=== PATIENT | male | born 1990 ===

== ENCOUNTER 2019-10-22 15:22 | Observation (INO) | payer BC, SELFPAY ==
[2019-10-22] VITALS (11 sets, daily range): BP systolic 116–152; BP diastolic 68–89; PULSE 74–97; RESP 15–24; TEMP 36.1–36.9; O2SAT 97–100
--- NOTE | 2019-10-22 15:30 | DI.CT_ITS ---
EXAM: CT ABDOMEN PELVIS W CLINICAL HISTORY: right lower abdominal pain TECHNIQUE: Imaging Protocol: Axial computed tomography images with coronal and sagittal reformatted images were created and reviewed CONTRAST MATERIAL: Intravenous: Omnipaque 350 Contrast volume:125 mL Oral: No COMPARISON: No exams were available for comparison FINDINGS: ABDOMEN: Lung Bases: Normal where visualized. Liver: Diffuse decreased attenuation of the liver consistent with fatty infiltration. No measurable mass. Portal, Superior Mesenteric, and Splenic Veins: Unremarkable. Gallbladder and Biliary Tract: No radiodense calculus or dilation. Pancreas: Normal density, no abnormal calcifications or inflammatory process. Spleen: Normal. Adrenals: No masses seen. Kidneys: Normal size, contour and axis. No radiodense stones or obstructive uropathy. No masses seen. Abdominal Aorta: Abdominal portion non-dilated. Bowel: No obstruction or bowel wall thickening. The appendix is distended measuring 1.8 cm in diamete r. There is thickening of the appendiceal wall with periappendiceal inflammatory changes. There is a n appendicoliths seen in the mid appendix. No focal fluid collection is seen to suggest an abscess. Peritoneal Cavity: No ascites, collection or mesenteric inflammatory response. Lymph Nodes: Mildly enlarged lymph nodes are seen in the right lower quadrant which are likely reacti ve. Bones: Unremarkable. Soft Tissues: There is a small fat containing umbilical hernia. PELVIS: Bladder: Symmetric distention, no gross wall thickening. Reproductive Organs: Unremarkable as visualized. Lymph Nodes: Mildly enlarged lymph nodes are seen in the right lower quadrant which are likely reacti ve. Bones: Within normal limits. IMPRESSION: Findings consistent with an acute appendicitis with appendicolith. No abscess or free air is identif ied. Incidental Findings Critical Findings RADIATION DOSE DELIVERED: DATA REPOSITORY: All CT scans at this facility are submitted to the National Radiology Data Registry (NRDR) Dose Index Registry (DIR) with the [employer] ([employer]). RADIATION OPTIMIZATION: All CT scans at this facility use at least one of these dose optimization te chniques: automated exposure control; mA and/or kV adjustment per patient size (includes targeted exa ms where dose is matched to clinical indication); or iterative reconstruction.
--- NOTE | 2019-10-22 15:41 | ED.GENADUL_ITS ---
Discharge Plan Disposition Patient Disposition: [facility] INPATIENT Condition: Stable Discharge Details Chief Complaint: Abd Prob Clinical Impression: Acute appendicitis Primary Care Provider: Margaret,Local ED Provider: Dash Patton Medical Decision Making 28 yo male who denies chronic medical problems, nonsmoker and denies alcohol or drug use and no prior abdominal surgeries comes in with chief complaint of abdominal pain. HE states he had a fever to 100.8 yesterday and has had increasing abdominal pain mostly in the RLQ. Denies vomit but has had nausea. Denies any known sick contacts and no travel. He has normal testicle exam, tenderness in right lower quadrant and ruq on exam without guarding or distention. Given his fever and pain will obtain lab work and CT to eval for appendicitis, cholecystitis and pancreatitis among other potential pathology ct shows appendicitis with possible microperforation. He feels better after toradol and zofran. Spoke with Dr. Gandhi from surgery who will admit the patient. levo/flagyl ordered as he has cefixime allergy Differential Diagnosis Differential Diagnosis: appendicitis, colitis, pancreatitis Imaging Data Radiologic Study: Attestation: I personally reviewed and interpreted this imaging study as follows: Imaging: CT Scan Radiologist's impression: IMPRESSION: 1. Appendicolith in the enlarged poorly defined appendix measuring 18 mm in maximum diameter with prominent infiltration of periappendiceal fat and fluid, consistent with acute appendicitis. Underlying perforation cannot be excluded. 2. Additional findings as described above. Lab Data Lab results reviewed: Yes I reviewed the patient's lab results. HPI General Mode of arrival: ambulatory . Date/Time Provider Initiated Documentation: 10/22/19 15:25 . Limitations to Documentation: no limitations . Information obtained by: patient . History of Present Illness 28 year old M presents to the emergency department with the chief complaint of abdominal pain, described as moderate, and it has been constant. No relieving factors improve symptom(s), No exacerbating factors reported . Patient did receive the following treatments prior to arrival, none Related Data Allergies Allergy/AdvReac Type Severity Reaction Status Date / Time cefixime [From Suprax] Allergy Unverified 10/22/19 15:38 General Stated Complaint: Abd Prob STORMY: 3 Review of Systems All systems reviewed & are unremarkable except as noted in HPI and below Constitutional Constitutional: Denies chills, Denies fever(s) and Denies weakness Cardiovascular Cardiovascular: Denies chest pain and Denies dyspnea Respiratory Respiratory: Denies cough and Denies dyspnea Gastrointestinal Gastrointestinal: Denies vomiting Musculoskeletal Musculoskeletal: Denies joint swelling Neurologic Neurologic: Denies weakness Psychiatric Psychiatric: Denies depression [facility] Social History Smoking/Tobacco Use Status: Never Alcohol Intake: never Drug use: Never Substance use type: does not use Do you feel safe at home: Yes Do you feel safe in your relationship?: Yes Exam Const General: no acute distress Orientation: alert HENMT Head: normal to inspection Ears: external ears normal General nose exam: external nose normal Mouth: moist mucous membranes Eyes General: appearance normal, both eyes and all related structures Neck Neck: normal visual inspection Resp Effort & Inspection: normal respiratory effort and able to speak in complete sentences Cardio Rate: regular rate GI Palpation: soft and tender Penis: normal penis Testes: normal, no testicular swelling and no testicular tenderness Neuro General: patient alert and patient oriented x3 Extrem General: normal to inspection Psych Mental Status: mental status grossly normal Course Vital Signs Vital signs: Vital Signs Temperature 36.1 C L 10/22/19 15:30 Pulse 97 H 10/22/19 15:30 Blood Pressure 152/89 H 10/22/19 15:30 Pulse Oximetry 98 10/22/19 15:30 Temperature 36.1 C L 10/22/19 15:30 Temperature Source Temporal Artery Scan 10/22/19 15:30 Pulse 97 H 10/22/19 15:30 Respiratory Effort Non-Labored 10/22/19 15:36 Blood Pressure 152/89 H 10/22/19 15:30 Blood Pressure Position Sitting 10/22/19 15:30 Pulse Oximetry 98 10/22/19 15:30 Oxygen Delivery Method Room Air 10/22/19 15:30 Oxygen Flow Rate 0 10/22/19 15:30 Pain Level 6 10/22/19 15:30
[2019-10-22] MEDS: Ketorolac 15 MG/ML VIAL IVP (16:03)
[2019-10-22] MEDS: Normal Saline 1,000 ML 1000 ML IV (16:03)
[2019-10-22] MEDS: Ondansetron 4 MG/2 ML VIAL IVP (16:04)
[2019-10-22] MEDS: Normal Saline Flush 10 ML SYR IVP (16:04)
[2019-10-22 16:06] LABS: Abs Immature Grans 0.03 k/cumm (0.0-0.09); Absolute Basophil Count 0.01 k/cumm (0.0-0.2); Absolute Monocyte Count 1.35 k/cumm (0.11-0.7); Basophils % 0.1; Eosinophils % 1.5; HCT 43.8 % (40.0-50.0); HGB 14.2 g/dL (13.5-17.5); Immature Grans % 0.2 %; Lymphocytes % 21.7; Mean Corp. HGB Concentration 32.4 g/dL (32.0-36.0); Mean Corpuscular Hemoglobin 28.1 pg (27.0-33.0); Mean Corpuscular Volume 86.6 fL (80-95); Mean Platelet Volume 11.7 fL (8.0-11.0); Monocytes % 9.4; Neutrophils % 67.1; Platelet Count 348 x1000/uL (130-400); RBC 5.06 m/cumm (4.50-6.00); RBC Distribution Width 13.5 % (11.8-14.1); White Blood Cell Count 14.31 k/cumm (4.4-10.8)
[2019-10-22] MEDS: Normal Saline - Diluent 50 ML VIAL IV ×2 (16:10→16:17)
[2019-10-22] MEDS: Omnipaque 350 MG/ML 100 ML BTL IJ (16:11)
[2019-10-22] MEDS: Omnipaque 350 MG/ML 50 ML BTL IJ (16:16)
[2019-10-22 16:20] LABS: ALT 26 U/L (16-63); AST 17 U/L (15-37); Albumin 2.9 g/dL (3.4-5.0); Alkaline Phosphatase 81 U/L (46-116); Anion Gap 7.8 mmol/L (3-11); BUN 8 mg/dL (7-18); Bilirubin Negative (Negative); Bilirubin, Direct 0.16 mg/dL (0.00-0.20); Bilirubin, Total 0.9 mg/dL (0.2-1.0); Blood Trace-intact (Negative); CO2 28.2 mmol/L (21.0-32.0); CREATININE 0.85 mg/dL (0.70-1.30); Calcium 8.5 mg/dL (8.5-10.1); Chloride 103 mmol/L (98-107); Clarity Clear (Clear); Glucose 86 mg/dL (74-106); Glucose Negative (Negative); Ketones Trace mg/dL (Negative); Leukocyte Esterase Negative (Negative); Lipase 70 U/L (73-393); Nitrite Negative (Negative); Sodium 139 mmol/L (136-145); Specific Gravity >= 1.030 (1.005-1.025); Total Protein 7.9 g/dL (6.4-8.2); pH 5.5 (5-8)
--- NOTE | 2019-10-22 16:40 | DI.VRAD_ITS ---
Addendum created by Tyler Barrow MD on 10/22/2019 4:40:18 PM EDT Addendum: These findings were conveyed to Dash Pop at the time of interpretation (10/22/2019 4:40 PM EDT). Initial report created on 10/22/2019 4:37:57 PM EDT PROCEDURE INFORMATION: Exam: CT Abdomen And Pelvis With Contrast Exam date and time: 10/22/2019 3:39 PM Age: 28 years old Clinical indication: Other: Rlq pain TECHNIQUE: Imaging protocol: Computed tomography of the abdomen and pelvis with intravenous contrast. Radiation optimization: All CT scans at this facility use at least one of these dose optimization techniques: automated exposure control; mA and/or kV adjustment per patient size (includes targeted exams where dose is matched to clinical indication); or iterative reconstruction. Contrast material: OMNIPAQUE 350; Contrast volume: 125 ml; Contrast route: IV; COMPARISON: No relevant prior studies available. FINDINGS: Pleural space: No acute airspace or pleural disease. Liver: Fatty infiltration of the liver. Gallbladder and bile ducts: No cholelithiasis or biliary ductal dilatation. Pancreas: No pancreatic mass or ductal dilatation. Spleen: Spleen upper limits of normal in size. Adrenals: Unremarkable adrenals. Kidneys and ureters: Normal renal morphology. No hydronephrosis. Stomach and bowel: Prominent stool and diverticula. Appendix: Appendicolith in the enlarged poorly defined appendix measuring 18 mm in maximum diameter with prominent infiltration of periappendiceal fat and fluid, consistent with acute appendicitis. Underlying perforation cannot be excluded. Intraperitoneal space: Small quantity of free fluid in the right lower quadrant. Vasculature: Normal caliber of the abdominal aorta. Lymph nodes: Mildly enlarged mesenteric lymph nodes in the right lower quadrant, the largest measuring 15 x 10 x 16 mm. Bladder: Normal morphology of the nondistended bladder. Reproductive: Unremarkable as visualized. Bones/joints: Loss of normal lumbar lordosis. Soft tissues: Small fat containing umbilical hernia. IMPRESSION: 1. Appendicolith in the enlarged poorly defined appendix measuring 18 mm in maximum diameter with prominent infiltration of periappendiceal fat and fluid, consistent with acute appendicitis. Underlying perforation cannot be excluded. 2. Additional findings as described above. The aforementioned findings initiated a critical results communication pathway. An addendum will be issued at the time of clincian notification. Dictated and Authenticated by: Tyler Barrow MD. Ordering:SHANTI Bowling MD
[2019-10-22 16:41] LABS: Absolute Eosinophil Count 0.21 k/cumm (0.0-0.7); Absolute Lymphocyte Count 3.11 k/cumm (1.2-3.4)
[2019-10-22 16:45] LABS: Bacteria Negative HPF (Negative); C & S Indicated? No; Casts Negative LPF (Negative); Crystals Negative HPF (Negative); Epithelial Cells Negative HPF (Negative); Mucus Moderate (Negative); Other Cells Negative (Negative); RBC 0-2 HPF (0-2)
[2019-10-22] MEDS: levoFLOXacin 750 MG/150 ML BAG 100 MG IVPB (16:56)
--- NOTE | 2019-10-22 18:04 | W.PM.HP.N ---
Date of service: 10/22/19 Time of Service: 18:04 Assessment and Plan Assessment and plan (1) Acute appendicitis: Status: Acute Assessment and plan: His clinical history, PE and CT findings are consistent with appendicitis. I advised laparoscopic appendectomy. The risks of infection, bleeding, hernia, injury to other organs, abscess were discussed. He agrees to proceed. History of Present Illness Narrative: Patient presented with a 24 hour history of abdominal pain and fever. Has localized to the RLQ. CT showed evidence of appendicitis with early perforation not excluded. Review of Systems All systems reviewed & are unremarkable except as noted in HPI and below PFSH Surgical History (Updated 10/22/19 @ 18:44 by Dorothy Gandhi MD) S/P eye surgery (Acute) S/P tonsillectomy (Acute) Social History Smoking/Tobacco Use Status: Never Alcohol Intake: never Drug use: Never Substance use type: does not use Do you feel safe at home: Yes Do you feel safe in your relationship?: Yes Meds Home Medications and Allergies Allergies Allergy/AdvReac Type Severity Reaction Status Date / Time cefixime [From Suprax] Allergy Unverified 10/22/19 15:38 Exam Narrative Exam Narrative: Alert, no acute distress Obese Heart RRR Lungs CTA Abdomen soft, tender RLQ Results Labs Result diagrams: 10/22/19 15:50 10/22/19 15:50 Labs: Laboratory Results - last 24 hr 10/22/19 10/22/19 10/22/19 15:50 15:50 15:50 WBC 14.31 H RBC 5.06 Hgb 14.2 Hct 43.8 MCV 86.6 MCH 28.1 MCHC 32.4 RDW 13.5 Plt Count 348 MPV 11.7 H Immature Gran % 0.2 Neutrophils % 67.1 Lymphocytes % 21.7 Monocytes % 9.4 Eosinophils % 1.5 Basophils % 0.1 Absolute Neutrophils 9.60 H Absolute Lymphocytes 3.11 Absolute Monocytes 1.35 H Absolute Eosinophils 0.21 Absolute Basophils 0.01 Sodium 139 Potassium 4.0 Chloride 103 Carbon Dioxide 28.2 Anion Gap 7.8 BUN 8 Creatinine 0.85 Estimated GFR/1.73 m2 >= 60.00 Glucose 86 Calcium 8.5 Total Bilirubin 0.9 Conjugated Bilirubin 0.16 AST 17 ALT 26 Alkaline Phosphatase 81 Total Protein 7.9 Albumin 2.9 L Lipase 70 Urine Color Yellow Urine Clarity Clear Urine pH 5.5 Ur Specific [place] >= 1.030 H Urine Protein Negative Urine Ketones Trace H Urine Blood Trace-intact H Urine Nitrite Negative Urine Bilirubin Negative Urine Urobilinogen 1.0 H Ur Leukocyte Esterase Negative Urine RBC 0-2 Urine WBC 3-5 Ur Epithelial Cells Negative Urine Crystals Negative Urine Bacteria Negative Urine Casts Negative Urine Mucus Moderate Urine Other Negative Ur Culture Indicated? No Urine Glucose Negative Last Vital Signs Temp 97.0 F L 10/22/19 15:30 Pulse 97 H 10/22/19 15:30 BP 152/89 H 10/22/19 15:30 Pulse Ox 98 10/22/19 15:30 COVID-19 Screening Traveled to [place] from one of the affected countries or regions?: NO Recent travel in the [place] within the last 8 weeks?: No Recent out of the country travel within the last 8 weeks?: No Exposure or possible exposure to illness during travel?: No Had IN PERSON contact w/suspected or confirmed C-19 person: Yes Have you had the following symptoms in the past few days?: Yes Symptoms noted since travel?: Fever
--- NOTE | 2019-10-22 18:46 | W.PM.DS.N ---
Documented by User: Dorothy Gandhi MD 06/27/20 11:54 DS: Diagnosis Discharge Diagnosis (1) Acute appendicitis: Status: Acute Discharge Plan Disposition Patient Disposition: HOME Condition: Stable Discharge Details Reason For Visit: Appendicitis Admit Date/Time: 10/22/19 18:28 Admit Provider: Dorothy Gandhi Attending Provider: Dorothy Gandhi Primary Care Provider: Noreen Bills Hospital Course Hospital Course: The patient presented with right lower quadrant pain, fever and an elevated WBC. CT scan showed appendicitis with perforation not excluded. The patient was taken for laparoscopic appendectomy. The procedure was converted to an open appendectomy due to challenges with patient body habitus and the anatomy of the appendix. The appendix was not perforated. The patient was kept over night and was discharged on POD 1. Home Meds and New Rx's Prescriptions: No Action hydrocodone-acetaminophen 5-325 mg tablet 1 tab PO Q6H MDD 4 PRN (Reason: pain) Qty: 10 RF: 0 ibuprofen 600 mg tablet 600 mg PO Q6H PRN (Reason: pain) Qty: 60 RF: 3 Discharge Instructions Instructions: Appendicitis (GEN) Additional Instructions: The top bandage can be removed tomorrow. The steri strips will usually stick for about a week. When the edges start to curl up, they can be removed. It is okay to shower tomorrow, the water can run over the steri strips Do not swim or soak in a tub for two weeks Call for any concerns including fever, increased pain, vomiting, incision redness or drainage. Do not lift more than 5 pounds for two weeks. Walking and stairs are fine. Do not drive if on narcotic pain meds or if limited by pain. May use Tylenol alternating with ibuprofen for pain control. Ice is also an option. The maximum dose for Tylenol is 4000 mg/day. May use ibuprofen 800 mg every 8 hours as needed. If concerned about constipation, you may use a stool softener or milk of magnesia. Keep an ice bag on the incision. 20 minutes on and 20 minutes off. Ice keeps the swelling down and swelling causes pain. Make sure you wrap the ice pack in a towel and don't apply directly to the skin. -No driving x1 week or of you are taking pain medications. -If you have bhumi or sutures in place, they will be removed at your clinic appointment in 7-10 days. -Do Not remove any steri tapes (white tapes) that cover the incision. If you have steri-tapes on your incision, do not use antibacterial ointment. -soft diet: No beef/pork raw vegetables x1 -week. Cooked vegetables are fine -no straining to move bowels -pain meds are very constipating: if you do not move your bowels daily take a dose of OTC milk of magnesia -It is ok to shower. No bathe, soaking, swimming or hot tubs -Keep wound clean and dry. Wash incision with soap and water daily. Pat dry, don't rub. -If you do not have steri-tapes on your incision, than keep the wound covered with a gauze and antibacterial ointment. -You may find that your appetite is smaller. Eat 3-6 small meals throughout the day. It is important to drink lots of water after surgery, 6-10 glasses a day. yogurt daily for 2 weeks. -If you were given an incentive spirometry (breathing police patrol lieutenant?), continue to do this 10x/hour while awake. -We do want you up walking, at least 5-6 times per day. This is very important to prevent pneumonia and blood clots. You can climb stairs, take them slowly. -No lifting over 5 pounds. This is very important to avoid developing a hernia in your incision. -You may find that you are very tired after surgery- this is normal. -F/u w/ Dr. Gandhi in clinic on 11/01 at 9am You did not have a ruptured appendix and do NOT need to be on antibiotics. Stand Alone Forms: Nursing Discharge Form Referrals: Dorothy Gandhi MD [ [facility] STAFF PHYSICIAN] - 11/02/19 9:00 am (Return in 10-14 days for a postop check) Activity:: Do not lift more than 15 pounds Equipment/Supplies:: No Equipment Needed Diet:: As Tolerated Discharge Orders Discharge Orders: Discharge Order (Routine); Ordered 10/23/19 Ordered By: Anusha Parra Discharge Data Discharge Date/Time-TO BE ENTERED AT DEPARTURE: 10/23/19 15:30 DS: Data Vitals/I&O Vitals and I&O: Vital Signs Temperature 97.0 F L 10/22/19 15:30 Temperature Source Temporal Artery Scan 10/22/19 15:30 Pulse 97 H 10/22/19 15:30 Respiratory Effort Non-Labored 10/22/19 15:36 Blood Pressure 152/89 H 10/22/19 15:30 Blood Pressure Position Sitting 10/22/19 15:30 Pulse Oximetry 98 10/22/19 15:30 Oxygen Delivery Method Room Air 10/22/19 15:30 Oxygen Flow Rate 0 10/22/19 15:30 Pain Level 6 10/22/19 16:03 Intake & Output 10/21/19 10/22/19 10/22/19 23:59 11:59 23:59 Intake Total 1160 / 1160 Balance 1160 / 1160 Weight 305 lb 0.011 oz Intake: IV 1160 / 1160 Data Completed and Pending Labs on day of discharge: Labs from last 24 hours 10/22/19 10/22/19 10/22/19 15:50 15:50 15:50 WBC 14.31 H RBC 5.06 Hgb 14.2 Hct 43.8 MCV 86.6 MCH 28.1 MCHC 32.4 RDW 13.5 Plt Count 348 MPV 11.7 H Immature Gran % 0.2 Neutrophils % 67.1 Lymphocytes % 21.7 Monocytes % 9.4 Eosinophils % 1.5 Basophils % 0.1 Absolute Neutrophils 9.60 H Absolute Lymphocytes 3.11 Absolute Monocytes 1.35 H Absolute Eosinophils 0.21 Absolute Basophils 0.01 Sodium 139 Potassium 4.0 Chloride 103 Carbon Dioxide 28.2 Anion Gap 7.8 BUN 8 Creatinine 0.85 Estimated GFR/1.73 m2 >= 60.00 Glucose 86 Calcium 8.5 Total Bilirubin 0.9 Conjugated Bilirubin 0.16 AST 17 ALT 26 Alkaline Phosphatase 81 Total Protein 7.9 Albumin 2.9 L Lipase 70 Urine Color Yellow Urine Clarity Clear Urine pH 5.5 Ur Specific [place] >= 1.030 H Urine Protein Negative Urine Ketones Trace H Urine Blood Trace-intact H Urine Nitrite Negative Urine Bilirubin Negative Urine Urobilinogen 1.0 H Ur Leukocyte Esterase Negative Urine RBC 0-2 Urine WBC 3-5 Ur Epithelial Cells Negative Urine Crystals Negative Urine Bacteria Negative Urine Casts Negative Urine Mucus Moderate Urine Other Negative Ur Culture Indicated? No Urine Glucose Negative PFSH Medical History (Updated 11/19/19 @ 19:49 by Dorothy Gandhi MD) Infected seroma, postoperative Morbidly obese Superficial incisional surgical site infection Surgical History (Updated 10/23/19 @ 11:02 by Dorothy Gandhi MD) S/P appendectomy S/P eye surgery S/P tonsillectomy Social History Smoking/Tobacco Use Status: Never Smoking risk assessment performed?: Yes Alcohol Intake: never Drug use: Never Substance use type: does not use Do you feel safe at home: Yes Do you feel safe in your relationship?: Yes Documented by User: Anusha Parra DO 10/23/19 14:08 Discharge Plan Disposition Patient Disposition: HOME Condition: Stable Discharge Details Reason For Visit: Appendicitis Admit Date/Time: 10/22/19 18:28 Admit Provider: Dorothy Gandhi Attending Provider: Dorothy Gandhi Primary Care Provider: Noreen Bills [facility] Course Hospital Course: The patient presented with right lower quadrant pain, fever and an elevated WBC. CT scan showed appendicitis with perforation not excluded. The patient was taken for laparoscopic appendectomy. The procedure was converted to an open appendectomy due to challenges with patient body habitus and the anatomy of the appendix. The appendix was not perforated. The patient was kept over night and was discharged on POD 1. Home Meds and New Rx's Prescriptions: No Action hydrocodone-acetaminophen 5-325 mg tablet 1 tab PO Q6H MDD 4 PRN (Reason: pain) Qty: 10 RF: 0 ibuprofen 600 mg tablet 600 mg PO Q6H PRN (Reason: pain) Qty: 60 RF: 3 Discharge Instructions Instructions: Appendicitis (GEN) Additional Instructions: The top bandage can be removed tomorrow. The steri strips will usually stick for about a week. When the edges start to curl up, they can be removed. It is okay to shower tomorrow, the water can run over the steri strips Do not swim or soak in a tub for two weeks Call for any concerns including fever, increased pain, vomiting, incision redness or drainage. Do not lift more than 5 pounds for two weeks. Walking and stairs are fine. Do not drive if on narcotic pain meds or if limited by pain. May use Tylenol alternating with ibuprofen for pain control. Ice is also an option. The maximum dose for Tylenol is 4000 mg/day. May use ibuprofen 800 mg every 8 hours as needed. If concerned about constipation, you may use a stool softener or milk of magnesia. Keep an ice bag on the incision. 20 minutes on and 20 minutes off. Ice keeps the swelling down and swelling causes pain. Make sure you wrap the ice pack in a towel and don't apply directly to the skin. -No driving x1 week or of you are taking pain medications. -If you have bhumi or sutures in place, they will be removed at your clinic appointment in 7-10 days. -Do Not remove any steri tapes (white tapes) that cover the incision. If you have steri-tapes on your incision, do not use antibacterial ointment. -soft diet: No beef/pork raw vegetables x1 -week. Cooked vegetables are fine -no straining to move bowels -pain meds are very constipating: if you do not move your bowels daily take a dose of OTC milk of magnesia -It is ok to shower. No bathe, soaking, swimming or hot tubs -Keep wound clean and dry. Wash incision with soap and water daily. Pat dry, don't rub. -If you do not have steri-tapes on your incision, than keep the wound covered with a gauze and antibacterial ointment. -You may find that your appetite is smaller. Eat 3-6 small meals throughout the day. It is important to drink lots of water after surgery, 6-10 glasses a day. yogurt daily for 2 weeks. -If you were given an incentive spirometry (breathing police patrol lieutenant?), continue to do this 10x/hour while awake. -We do want you up walking, at least 5-6 times per day. This is very important to prevent pneumonia and blood clots. You can climb stairs, take them slowly. -No lifting over 5 pounds. This is very important to avoid developing a hernia in your incision. -You may find that you are very tired after surgery- this is normal. -F/u w/ Dr. Gandhi in clinic on 11/01 at 9am You did not have a ruptured appendix and do NOT need to be on antibiotics. Stand Alone Forms: Nursing Discharge Form Referrals: Dorothy Gandhi MD [ [facility] STAFF PHYSICIAN] - 11/02/19 9:00 am (Return in 10-14 days for a postop check) Activity:: Do not lift more than 15 pounds Equipment/Supplies:: No Equipment Needed Diet:: As Tolerated Discharge Orders Discharge Orders: Discharge Order (Routine); Ordered 10/23/19 Ordered By: Anusha Parra Discharge Data Discharge Date/Time-TO BE ENTERED AT DEPARTURE: 10/23/19 15:30 DS: Summary Status at Discharge Functional status at discharge: independent ambulation Overall status at discharge: patient is back to baseline Mental Status: mental status grossly normal Speech and Movement: speech and movement normal Mood: congruent mood Affect: normal affect Exam Psych Mental Status: mental status grossly normal Speech and Movement: speech and movement normal Mood: congruent mood Affect: normal affect [facility] Medical History (Updated 11/19/19 @ 19:49 by Dorothy Gandhi MD) Infected seroma, postoperative Morbidly obese Superficial incisional surgical site infection Surgical History (Updated 10/23/19 @ 11:02 by Dorothy Gandhi MD) S/P appendectomy S/P eye surgery S/P tonsillectomy Social History Smoking/Tobacco Use Status: Never Smoking risk assessment performed?: Yes Alcohol Intake: never Drug use: Never Substance use type: does not use Do you feel safe at home: Yes Do you feel safe in your relationship?: Yes
--- NOTE | 2019-10-22 18:47 | W.PM.OP ---
Operative Note Operative Note DATE OF PROCEDURE: 10/22/19 PRE-OP DIAGNOSIS: Acute appendicitis POST-OP DIAGNOSIS: same PROCEDURE: Laparoscopic appendectomy, converted to open SURGEON: Dorothy Gandhi ANESTHESIA: GETA and local Patient was transported to: PACU Indications: This patient presented to the emergency department with an approximately 24-hour history of abdominal pain that has localized to the right lower quadrant and fever. He had a CT scan of the abdomen pelvis that I reviewed that shows appendicitis with perforation not ruled out. He does have elevated white blood cell count as well. Procedure Description: The patient was placed supine on the operating table and after induction of general anesthetic was prepped and draped sterilely. A small infraumbilical midline incision was made after injecting local anesthetic. The peritoneum was entered bluntly. 0 Vicryl sutures were placed on either side of the fascia and the Mayes port held in place with these. A pneumoperitoneum was began. Right upper quadrant and left upper quadrant 5 mm ports were placed after injecting local anesthetic. The patient is fairly obese and it was quite difficult to visualize the appendix. I did place him slightly head down and left side down although again positioning was limited by his size. I also placed an additional right lower quadrant port to help with retraction of the omentum. I was able to identify the appendix which was down in the pelvis. There was no evidence of abscess or perforation. It was difficult to decipher the base of the appendix and I was not making any progress laparoscopically. I therefore suctioned out the pneumoperitoneum and converted to an open procedure. A standard right lower quadrant incision was made with the muscle-splitting technique. The wound protector was placed. I could reach my hand in the incision and completely mobilized the appendix side of the pelvis with gentle blunt dissection. The appendiceal base was normal but then the appendix was significantly dilated a centimeter or two from the base and was curled back upon itself which is why it was difficult to sort out laparoscopically. The mesoappendix was taken down by clamping dividing and ligating with 0 Vicryl ties. The mesoappendix did have some turbid fluid. Once the mesoappendix was taken down a pursestring suture was placed at the base of the cecum around the appendix with a 2-0 silk. The base of the appendix was clamped and then a Lucinda placed distal to the clamp dasha. An 0 Vicryl suture was used to tie the appendix at the level of the clamping and then the appendix divided just underneath the Lucinda. The stump of the appendix was cauterized and dunked as the pursestring stitch was tied with good result. There is good hemostasis. The peritoneum was closed with a running 0 Vicryl and the fascia closed with a #1 PDS stitch. The skin and all incisions was closed with bhumi. He tolerated procedure well and was stable to recovery
[2019-10-22] MEDS: metroNIDAZOLE 500 MG/100 ML BAG 100 MG IVPB (19:02)
[2019-10-22] MEDS: Lactated Ringers 1,000 ML 30 ML IV ×2 (19:02→21:54)
[2019-10-22] MEDS: Bupivacaine 0.5% Pres-Free 30 ML VIAL (20:07)
--- NOTE | 2019-10-22 21:20 | APP_PTH ---
PATIENT: SAMREEN FRANKLIN LOC: U#:[id number] AGE/SX: 28/M ROOM: 216 RE10/22/[address]: Dorothy Gandhi MD : [id number] BED: A DIS: 10/23/2019 SPEC #: [id number] RECD: 10/23/19 12:26 STATUS: JOSHUA REQ #: [id number] NUNU: 10/22/19 21:[address]: Dorothy Gandhi DEPT: Surgical Specimen RECD BY: Shun Rodriguez ENTERED: 10/23/19 12:29 SP TYPE: Appendix OTHR DR: Noreen Bills Tissues: 1 - APPENDIX NOT INCIDENTAL Procedures: GROSS AND MICRO LEVEL 3 Comments: [id number]
[2019-10-23] VITALS: BP 121/73; PULSE 80; RESP 17; TEMP 37; O2SAT 97
[2019-10-23] MEDS: Normal Saline Flush 10 ML SYR IVP ×2 (00:02→09:08)
[2019-10-23 00:20] VITALS: BP 119/66; PULSE 81; RESP 18; TEMP 37.1; O2SAT 97
[2019-10-23 00:30] VITALS: BP 144/92; PULSE 77; RESP 18; TEMP 36.2; O2SAT 97
[2019-10-23 03:55] VITALS: BP 102/63; PULSE 82; RESP 16; TEMP 36.1; O2SAT 97
[2019-10-23] MEDS: HYDROcodone 5/Acetaminophen 325 TAB PO ×2 (04:06→11:43)
[2019-10-23] MEDS: Ketorolac 30 MG/ML VIAL IVP ×2 (07:21→14:31)
[2019-10-23 10:27] VITALS: BP 116/79; PULSE 84; RESP 16; TEMP 35.8; O2SAT 96
[2019-10-23] MEDS: Acetaminophen 325 MG TAB 650 MG PO (10:34)
--- NOTE | 2019-10-23 13:41 | INITIAL_ITS ---
- If Service Date Differs Date of service: 10/23/19 Time of Service: 15:18 Care Management Initial Assess REASON FOR HOSPITALIZATION:: Appendicitis PAST MEDICAL HISTORY/PAST SURGICAL HISTORY:: Eye surgery, tonsillectomy, S/P appendectomy PREVIOUS FUNCTIONAL STATUS/SOCIAL/FAMILY SUPPORTS:: Jeff resides in [place] with his fianceGaby. He reports being raised in the [facility], where his parents, Dash and Funmilayo العلي, still reside. Raquel works at the [employer] in [facility]. 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 He is independent at baseline in the community. CURRENT FUNCTIONAL STATUS:: Jeff is sitting up in a chair when meets with him. He is forthcoming with information and friendly in interaction. He openly shares difficulties and barriers to care due to current CV-19 processes. He reports having a fever as well as abdominal pain for more than four days, only relieved by drinking gingerale. He reported that due to fever he was put on quarantine though was told by his provider that he could not be seen due to not having multiple symptoms. Three weeks later, Jeff reports having a recurrence of symptoms including a fever. He spoke to an RN at his work and shared that he was experiencing swelling in his scrotum. The RN encouraged him strongly to call his provider, he did and was then sent to the [facility] ED. ADVANCE DIRECTIVES:: None on file. Has patient been provided with information about the portal?: Yes Did the patient sign up for the portal?: No CODE STATUS:: Full Code INSURANCE COVERAGE / FINANCIAL ISSUES:: BC/BS CURRENT HOME/COMMUNITY SERVICES/EQUIPMENT:: No current services or equipment. PRIMARY CARE PHYSICIAN:: Noreen Bills POTENTIAL DISCHARGE NEEDS:: Follow up appointments. PATIENT/FAMILY EDUCATION NEEDS:: Review of discharge instructions, discuss Ask Me Three. ANTICIPATED BARRIERS TO DISCHARGE:: None identified. TRANSPORTATION:: Via private vehicle with his significant other. PLAN:: Raquel will be tested for CV-19. He transitioned to another room and will await results (anticipate less than 24 hours). Jeff will return home when ready per MD. He will follow up with his PCP and plan of care as prescribed. He will transport home via private vehicle with his fiance.
--- NOTE | 2019-10-23 14:11 | W.PM.PROGNOT ---
Date of Service Date of service: 10/23/19 Time of Service: 14:11 Assessment and Plan Assessment and plan (1) Acute appendicitis: Status: Acute Assessment and plan: d/c home does NOT require further abx F/u dr bacon on 11/01 at 9am Rx vicodin and ibuprofen sent to [place] -off of work for the next two weeks do to surgery return on November 08. note faxed to DOC #[phone] if redness/drainge/swelling/fever/increasing in pain/vomiting- return to ED. Will call w/ results of COVID screen Subjective Subjective Interval history since last seen: Pt is doing well. no headaches. No CP or SOB. no productive cough. no dysuria. no leg pain or swelling. denies sore throat. WHen he uses his IS he does bring up phlegm. He tolerated lunch was passing gas. no BM yet. pain is controllable on orals. his appendix wasn't gangrenous or infected, but was done open do to anatomically difficulties. Exam HENMT Other: no sore throat or mout pain. no thrush. no eye pain or redness. no dental problems or malocclusion Chest Chest: normal inspection of the chest Resp Effort & Inspection: normal respiratory effort and able to speak in complete sentences Auscultation: clear to auscultation bilaterally Cardio Rate: regular rate Rhythm: regular rhythm GI Inspection: normal to inspection, non-distended and incision (c/d/i. no redness/drainage/swelling ) Percussion: normal to percussion Auscultation: normal bowel sounds Skin General skin exam: no rashes or lesions noted Neuro General: patient alert, patient awake, patient oriented x3, oriented and moves all extremities Extrem General: normal to inspection, full ROM and no clubbing, cyanosis or edema Objective Objective Clinical Data: Abnormal lab results 10/22/19 10/22/19 10/22/19 Range/Units 15:50 15:50 15:50 WBC 14.31 H (4.4-10.8) k/cumm MPV 11.7 H (8.0-11.0) fL Absolute Neutrophils 9.60 H (1.2-6.7) k/cumm Absolute Monocytes 1.35 H (0.11-0.7) k/cumm Albumin 2.9 L (3.4-5.0) g/dL Ur Specific [place] >= 1.030 H (1.005-1.025) Urine Ketones Trace H (Negative) mg/dL Urine Blood Trace-intact H (Negative) Urine Urobilinogen 1.0 H (Up TO 0.2) EU/dL Vital Signs Temperature 35.8 C L 10/23/19 10:27 Temperature Source Tympanic 10/23/19 10:27 Pulse 84 10/23/19 10:27 Pulse Rhythm Regular 10/22/19 23:31 Respiratory Rate 16 10/23/19 10:27 Respiratory Effort Non-Labored 10/22/19 23:31 Respiratory Depth Normal 10/22/19 23:31 Respiratory Pattern Normal 10/22/19 23:31 Blood Pressure 116/79 10/23/19 10:27 Blood Pressure Position Sitting 10/22/19 15:30 Pulse Oximetry 96 10/23/19 10:27 Respiratory End-tidal CO2 40 10/22/19 23:00 Oxygen Delivery Method Room Air 10/23/19 10:27 Oxygen Flow Rate 0 10/23/19 10:27 Pain Level 4 10/23/19 11:43 Intake & Output 10/22/19 10/23/19 10/23/19 23:59 11:59 23:59 Intake Total 2460 / 2460 1410 / 1410 Output Total 50 / 50 800 / 800 Balance 2410 / 2410 610 / 610 Weight 138.346 kg Intake: IV 2460 / 2460 800 / 800 Oral 610 / 610 Output: Urine 800 / 800 Estimated Blood Loss 50 / 50 Other: Urine Color Yellow Urine Appearance Clear Clear Emesis Description None Voiding Methods Urinal Laboratory Results WBC 14.31 k/cumm (4.4-10.8) H 10/22/19 15:50 RBC 5.06 m/cumm (4.50-6.00) 10/22/19 15:50 Hgb 14.2 g/dL (13.5-17.5) 10/22/19 15:50 Hct 43.8 % (40.0-50.0) 10/22/19 15:50 MCV 86.6 fL (80-95) 10/22/19 15:50 MCH 28.1 pg (27.0-33.0) 10/22/19 15:50 MCHC 32.4 g/dL (32.0-36.0) 10/22/19 15:50 RDW 13.5 % (11.8-14.1) 10/22/19 15:50 Plt Count 348 x1000/uL (130-400) 10/22/19 15:50 MPV 11.7 fL (8.0-11.0) H 10/22/19 15:50 Immature Gran % 0.2 % 10/22/19 15:50 Neutrophils % 67.1 10/22/19 15:50 Lymphocytes % 21.7 10/22/19 15:50 Monocytes % 9.4 10/22/19 15:50 Eosinophils % 1.5 10/22/19 15:50 Basophils % 0.1 10/22/19 15:50 Absolute Neutrophils 9.60 k/cumm (1.2-6.7) H 10/22/19 15:50 Absolute Lymphocytes 3.11 k/cumm (1.2-3.4) 10/22/19 15:50 Absolute Monocytes 1.35 k/cumm (0.11-0.7) H 10/22/19 15:50 Absolute Eosinophils 0.21 k/cumm (0.0-0.7) 10/22/19 15:50 Absolute Basophils 0.01 k/cumm (0.0-0.2) 10/22/19 15:50 Sodium 139 mmol/L (136-145) 10/22/19 15:50 Potassium 4.0 mmol/L (3.5-5.1) 10/22/19 15:50 Chloride 103 mmol/L (98-107) 10/22/19 15:50 Carbon Dioxide 28.2 mmol/L (21.0-32.0) 10/22/19 15:50 Anion Gap 7.8 mmol/L (3-11) 10/22/19 15:50 BUN 8 mg/dL (7-18) 10/22/19 15:50 Creatinine 0.85 mg/dL (0.70-1.30) 10/22/19 15:50 Estimated GFR/1.73 m2 >= 60.00 (mL/min/1.73m2) 10/22/19 15:50 Glucose 86 mg/dL (74-106) 10/22/19 15:50 Calcium 8.5 mg/dL (8.5-10.1) 10/22/19 15:50 Total Bilirubin 0.9 mg/dL (0.2-1.0) 10/22/19 15:50 Conjugated Bilirubin 0.16 mg/dL (0.00-0.20) 10/22/19 15:50 AST 17 U/L (15-37) 10/22/19 15:50 ALT 26 U/L (16-63) 10/22/19 15:50 Alkaline Phosphatase 81 U/L (46-116) 10/22/19 15:50 Total Protein 7.9 g/dL (6.4-8.2) 10/22/19 15:50 Albumin 2.9 g/dL (3.4-5.0) L 10/22/19 15:50 Lipase 70 U/L (73-393) 10/22/19 15:50 Urine Color Yellow (Yellow) 10/22/19 15:50 Urine Clarity Clear (Clear) 10/22/19 15:50 Urine pH 5.5 (5-8) 10/22/19 15:50 Ur Specific [place] >= 1.030 (1.005-1.025) H 10/22/19 15:50 Urine Protein Negative mg/dL (Negative) 10/22/19 15:50 Urine Ketones Trace mg/dL (Negative) H 10/22/19 15:50 Urine Blood Trace-intact (Negative) H 10/22/19 15:50 Urine Nitrite Negative (Negative) 10/22/19 15:50 Urine Bilirubin Negative (Negative) 10/22/19 15:50 Urine Urobilinogen 1.0 EU/dL (Up TO 0.2) H 10/22/19 15:50 Ur Leukocyte Esterase Negative (Negative) 10/22/19 15:50 Urine RBC 0-2 HPF (0-2) 10/22/19 15:50 Urine WBC 3-5 HPF (0-5) 10/22/19 15:50 Ur Epithelial Cells Negative HPF (Negative) 10/22/19 15:50 Urine Crystals Negative HPF (Negative) 10/22/19 15:50 Urine Bacteria Negative HPF (Negative) 10/22/19 15:50 Urine Casts Negative LPF (Negative) 10/22/19 15:50 Urine Mucus Moderate (Negative) 10/22/19 15:50 Urine Other Negative (Negative) 10/22/19 15:50 Ur Culture Indicated? No 10/22/19 15:50 Urine Glucose Negative mg/dL (Negative) 10/22/19 15:50
[2019-10-23] MEDS: Milk of Magnesia 30 ML CUP PO (14:18)
--- NOTE | 2019-10-23 14:26 | W.NUTCONSULT ---
Date of service: 10/23/19 Time of Service: 14:27 Nutritional Consult ASSESSMENT: 28 year old male admitted with acute appendicitis. Diet advanced to surgical soft, po intake adequate. BMI indicates morbid obesity. Not at risk for nutritional decline at this time. Will follow prn. Time Spent in Nutritional Counseling and Treatment: 0 time spent face to face
[2019-10-26 08:44] LABS: COVID-19 RT-PCR Result Negative (Negative)
== END 2019-10-23 15:30 | disposition home or self-care (01) | DRG 342 ==
LOC: ER 17:05 → PDS 18:47 → MS 23:25 → PDS 10-26 10:24 → MS 10-26 10:25
PROVIDERS: Admitting Provider Surgery; Emergency Provider Emergency Medicine; PCP Registered Nurse; Visit Provider Surgery
PROC: 0DTJ4ZZ Resection of Appendix, Percutaneous Endoscopic Approach (ICD-10-PCS; CPT 44970; principal; 2019-10-22 17:30)
PROC: 0DTJ0ZZ Resection of Appendix, Open Approach (ICD-10-PCS; CPT 44950; 2019-10-22 17:30)
DX: K35.890 Other acute appendicitis without perforation or gangrene (principal); Z68.41 Body mass index [BMI] 40.0-44.9, adult; Z11.59 Encounter for screening for other viral diseases; E66.9 Obesity, unspecified; Z23 Encounter for immunization
CPT/HCPCS: 44950; 36415; 80053; 83690; 96361; 96365; 96366; 96375; 99223; 99238; 99285; NC; U0003; 74177; 81003; 81015; 82248; 85025; 88304; 99284; G0378; J0131; J1100; J1885; J1956; J2001; J2250; J2405; J3010; J3490; Q9967

== ENCOUNTER 2019-10-29 15:10 | Outpatient (REF) | payer BC, SELFPAY | END 2019-10-29 15:30 | LOC: LBN 15:10 | PROVIDERS: PCP Registered Nurse; Visit Provider Surgery | DX: T81.41XA Infection following a procedure, superficial incisional surgical site, initial encounter; K35.80 Unspecified acute appendicitis | CPT/HCPCS: 87070; 87205 ==

== ENCOUNTER 2022-08-16 11:59 | Outpatient (REF) | payer BC, SELFPAY ==
[2022-08-16 21:06] LABS: ESR 35 mm/hr (0-15)
[2022-08-16 21:20] LABS: C-Reactive Protein 0.49 mg/dL (0.0-0.3)
[2022-08-17 19:35] LABS: Rheumatoid Factor <8.6 IU/mL (<12.0)
[2022-08-20 14:59] LABS: ANA Interpretation Negative (Negative)
== END 2022-08-16 12:00 | disposition home or self-care (01) ==
LOC: LBN 11:59
PROVIDERS: PCP Registered Nurse; Visit Provider Nurse Practitioner Family
DX: M25.441 Effusion, right hand (principal); M25.442 Effusion, left hand; Z82.61 Family history of arthritis; M79.644 Pain in right finger(s); M79.645 Pain in left finger(s); K62.5 Hemorrhage of anus and rectum; K62.89 Other specified diseases of anus and rectum
CPT/HCPCS: 85652; 86038; 86140; 86431